=== PATIENT | male | born 1995 | race Caucasian/White ===

== ENCOUNTER 2020-02-17 09:46 | Emergency (ER) | payer SELFPAY ==
--- OUTSIDE RECORDS SUMMARY | 2020-02-17 09:49 | XMS REPORT | Continuity of Care Document ---
:1995 Author Organization [facility] t Address [address] Hernandez [address] [place] [id number] Care Team Providers Name Role Phone Unavailable Unavailable Unavailable Problems This patient has no known problems. Allergies, Adverse Reactions, Alerts This patient has no known allergies or adverse reactions. Medications This patient has no known medications. Procedures This patient has no known procedures. Results This patient has no known results.
[2020-02-17 10:15] LABS: Absolute Lymphocytes (CBC) 1.3 K/uL (0.7-4.9); Basophils % 0.2 % (0-1.3); Hematocrit 48.1 % (39.6-49.0); MPV 9.4 fL (7.6-11.3); RBC Red Blood Cell Count 5.09 M/uL (4.33-5.43)
[2020-02-17] MEDS ORDERED: NA CHLORIDE 0.9% 1,000 ML ONE (10:15)
[2020-02-17 10:20] LABS: Protime INR 0.92
[2020-02-17 10:35] LABS: ALT/SGPT 47 U/L (12-78); AST/SGOT 28 U/L (15-37); Albumin 4.4 g/dL (3.4-5.0); Alkaline Phosphatase 74 U/L (45-117); BUN Blood Urea Nitrogen 11 mg/dL (7-18); Bicarbonate 23 mmol/L (21-32); Bilirubin Direct 0.3 mg/dL (0-0.2); Bilirubin Total 1.4 mg/dL (0.2-1.0); Glucose Level 69 mg/dL (74-106); Potassium 3.9 mmol/L (3.5-5.1); Sodium Level 136 mmol/L (136-145)
[2020-02-17] MEDS ORDERED: LIDOCAINE 1% W/EPI 1:100,000 MDV 20 ML VIAL ONE (11:30)
[2020-02-17 11:36] LABS: Blood Morphology Comment NOT SEEN (NOT SEEN); Platelet Estimate ADEQ; Urine White Blood Cell Casts OK
--- NOTE | 2020-02-17 11:56 | EDPHYS ---
Physician Documentation [facility] Name: Anthony Deng Age: 24 yrs Sex: Male : 1995 Arrival Date: 02/17/2020 Time: 09:48 Bed 17 Private MD: ED Physician Jeff Yates HPI: 02/16 11:50 This 24 yrs old Male presents to ER via EMS with complaints of Suicidal simran Ideation. 11:50 The patient presents to the emergency department with anxiety, depression, a history of simran a suicide gesture, where the patient cut wrists, suicide ideation. Onset: The symptoms/episode began/occurred this morning, today. Past psychiatric history: Prior diagnosis: depression. Associated signs and symptoms: The patient has no apparent associated signs or symptoms. Severity of symptoms: At their worst the symptoms were moderate in the emergency department the symptoms have improved mildly. The patient has experienced similar episodes in the past, several times. Historical: - Allergies: 09:52 No Known Allergies; ss - Home Meds: :52 None [Active]; ss - PMHx: :52 None; ss - PSHx: 09:52 None; ss - Immunization history:: Adult Immunizations up to date. - Social history:: Smoking status: Patient reports the use of cigarette tobacco products, smokes one-half pack cigarettes per day. ROS: 11:51 Constitutional: Negative for fever, chills, and weight loss, Eyes: Negative for injury, simran pain, redness, and discharge, ENT: Negative for injury, pain, and discharge, Neck: Negative for injury, pain, and swelling, Cardiovascular: Negative for chest pain, palpitations, and edema, Respiratory: Negative for shortness of breath, cough, wheezing, and pleuritic chest pain, Abdomen/GI: Negative for abdominal pain, nausea, vomiting, diarrhea, and constipation, Back: Negative for injury and pain, : Negative for injury, bleeding, discharge, and swelling, Skin: Negative for injury, rash, and discoloration, Neuro: Negative for headache, weakness, numbness, tingling, and seizure, Allergy/Immunology: Negative for hives, rash, and allergies, Endocrine: Negative for neck swelling, polydipsia, polyuria, polyphagia, and marked weight changes, Hematologic/Lymphatic: Negative for swollen nodes, abnormal bleeding, and unusual bruising. 11:51 MS/extremity: Positive for laceration, swelling, tenderness, of the right arm and left arm. 11:51 Psych: Positive for depression, suicide gesture, suicidal ideation. Exam: 11:51 Constitutional: This is a well developed, well nourished patient who is awake, alert, simran and in no acute distress. Head/Face: Normocephalic, atraumatic. Eyes: Pupils equal round and reactive to light, extra-ocular motions intact. Lids and lashes normal. Conjunctiva and sclera are non-icteric and not injected. Cornea within normal limits. Periorbital areas with no swelling, redness, or edema. ENT: Nares patent. No nasal discharge, no septal abnormalities noted. Tympanic membranes are normal and external auditory canals are clear. Oropharynx with no redness, swelling, or masses, exudates, or evidence of obstruction, uvula midline. Mucous membranes moist. Neck: Trachea midline, no thyromegaly or masses palpated, and no cervical lymphadenopathy. Supple, full range of motion without nuchal rigidity, or vertebral point tenderness. No Meningismus. Chest/axilla: Normal chest wall appearance and motion. Nontender with no deformity. No lesions are appreciated. Cardiovascular: Regular rate and rhythm with a normal S1 and S2. No gallops, murmurs, or rubs. Normal PMI, no JVD. No pulse deficits. Respiratory: Lungs have equal breath sounds bilaterally, clear to auscultation and percussion. No rales, rhonchi or wheezes noted. No increased work of breathing, no retractions or nasal flaring. Abdomen/GI: Soft, non-tender, with normal bowel sounds. No distension or tympany. No guarding or rebound. No evidence of tenderness throughout. Back: No spinal tenderness. No costovertebral tenderness. Full range of motion. Male : Normal genitalia with no discharge or lesions. Skin: Warm, dry with normal turgor. Normal color with no rashes, no lesions, and no evidence of cellulitis. Neuro: Awake and alert, GCS 15, oriented to person, place, time, and situation. Cranial nerves II-XII grossly intact. Motor strength 5/5 in all extremities. Sensory grossly intact. Cerebellar exam normal. Normal gait. 11:51 Musculoskeletal/extremity: Extremities: noted in the right wrist and left arm: laceration, pain, ROM: intact in all extremities, Circulation is intact in all extremities. Sensation intact. Compartment Syndrome exam of affected extremity: is normal. DVT Exam: No signs of deep vein thrombosis. negative Homans' sign noted on exam, no appreciated bluish discoloration, no erythema, no increased warmth, pain, swelling, tenderness. 12:00 ECG was reviewed by the Attending Physician. [facility] Vital Signs: 09:50 BP 122 / 61; Pulse 61; Resp 14; Temp 98.2(O); Pulse Ox 100% on R/A; Weight 79.38 kg; ss Height 5 ft. 7 in. (170.18 cm); 14:30 BP 114 / 70; Pulse 61; Resp 19; Pulse Ox 99% on R/A; Pain 0/10; ls4 18:30 BP 122 / 64; Pulse 62; Resp 18; Pulse Ox 99% on R/A; Pain 0/10; ls4 22:30 BP 118 / 62; Pulse 60; Resp 16; Temp 98.4(O); Pulse Ox 99% on R/A; Pain 0/10; ls4 09:50 Body Mass Index 27.41 (79.38 kg, 170.18 cm) Laceration: 11:58 Wound Repair of 5cm ( 2.0in ) subcutaneous laceration to left wrist and right wrist. simran Irregularly shaped.. Distal neuro/vascular/tendon intact. Anesthesia: Local anesthetic administered with 10 mls of 1% lidocaine w/ Epi. Wound prep: Simple cleansing by me. Skin closed with 6 5-0 Prolene using vertical mattress sutures and sterile technique. Dressed with Neosporin, non-adherent dressing. Patient tolerated well. MDM: 09:49 Patient medically screened. simran 11:54 Data reviewed: vital signs, nurses notes, lab test result(s), EKG. simran 11:57 Differential diagnosis: drug withdrawal. acute psychotic break, depression, psychosis simran secondary to non-compliance. Data interpreted: engine monitor: rate is 61 beats/min, Pulse oximetry: on room air is 100 %. Test interpretation: by ED physician or midlevel provider: ECG. Counseling: I had a detailed discussion with the patient and/or guardian regarding: the historical points, exam findings, and any diagnostic results supporting the discharge/admit diagnosis, lab results, the need to transfer to another facility, for higher level of care, [facility] does not immediately have the required specialist. 19:57 Physician consultation: Dr. Soriano was called at 19:58, was contacted at 19:58, snw regarding regarding transfer, [facility] Psych. Dr. Soriano kindly accepts pt in transfer. 02/16 09:50 Order name: Acetaminophen; Complete Time: 11:49 [facility] 02/16 09:50 Order name: Basic Metabolic Panel; Complete Time: 11:49 [facility] 02/16 09:50 Order name: CBC with Diff; Complete Time: 11:49 [facility] 02/16 09:50 Order name: ETOH Level; Complete Time: 11:49 [facility] 02/16 09:50 Order name: Hepatic Function; Complete Time: 11:50 [facility] 02/16 09:50 Order name: PT-INR; Complete Time: 11:50 [facility] 02/16 09:50 Order name: Ptt, Activated; Complete Time: 11:50 [facility] 02/16 09:50 Order name: Salicylate; Complete Time: 11:50 [facility] 02/16 09:50 Order name: Urine Drug Screen; Complete Time: 19:54 [facility] 02/16 09:50 Order name: EKG; Complete Time: 09:52 [facility] 02/16 11:37 Order name: CBC Smear Scan; Complete Time: 11:50 [facility] 02/16 18:56 Order name: Urine Dipstick--Ancillary (enter results); Complete Time: 19:54 em1 02/16 09:50 Order name: EKG - Nurse/Tech; Complete Time: 10:02 [facility] 02/16 09:50 Order name: IV Saline Lock; Complete Time: 10:02 [facility] 02/16 09:50 Order name: Labs collected and sent; Complete Time: 10:02 [facility] 02/16 09:50 Order name: Urine Dipstick-Ancillary (obtain specimen); Complete Time: 18:54 [facility] 02/16 10:47 Order name: Diet Finger Food; Complete Time: 10:48 3 02/16 11:50 Order name: Diet Regular; Complete Time: 11:51 [facility] 02/16 11:50 Order name: Suture Tray at Bedside; Complete Time: 11:51 [facility] EC:00 Rate is 84 beats/min. Rhythm is regular. QRS [place] is Normal. ND interval is normal. QRS simran interval is normal. QT interval is normal. No Q waves. T waves are Normal. No ST changes noted. Clinical impression: Normal ECG and No evidence of ischemia. Interpreted by me. Reviewed by me. Administered Medications: 10:05 Drug: NS 0.9% 1000 ml Route: IV; Rate: 1 bolus; Site: right antecubital; bp 12:02 Follow up: IV Status: Completed infusion; IV Intake: 1000ml bp 12:01 Drug: Tetanus-Diphtheria Toxoid Adult 0.5 ml {Division Order Technician: [employer] Exp: bp 10/16/2021. Lot #: [id number]. } Route: IM; Site: left deltoid; Disposition: 02/17 13:27 Co-signature as Attending Physician, Jeff Yates MD I agree with the assessment and simran plan of care. Disposition: 02/17/20 11:56 Transfer ordered to Psych Facility. Diagnosis are Suicidal ideations, Suicide attempt, Laceration without foreign body of left forearm, Laceration without foreign body of right forearm, Major depressive disorder, recurrent, Alcohol abuse with intoxication - resolved. - Reason for transfer: Higher level of care. - Accepting physician is to psych. - Condition is Fair. - Problem is new. - Symptoms have improved. Signatures: Dispatcher [employer] Jeff Haro MD MD cha Therrien, Shelly, SAND SHOVELER-C SAND SHOVELER-Csnw Erin Cannon RN RN ss Bryson, James, RN RN jb4 Flaco West RN RN bp Corrections: (The following items were deleted from the chart) 02/16 12:32 11:56 02/17/2020 11:56 Transfer ordered to Psych Facility. Diagnosis is Suicidal simran ideations; Suicide attempt; Laceration without foreign body of left forearm; Laceration without foreign body of right forearm; Major depressive disorder, recurrent. Reason for transfer: Higher level of care. Accepting physician is to psych. Condition is Fair. Problem is new. Symptoms have improved. simran 02/17 00:42 02/16 12:32 02/17/2020 11:56 Transfer ordered to Psych Facility. Diagnosis is Suicidal jb4 ideations; Suicide attempt; Laceration without foreign body of left forearm; Laceration without foreign body of right forearm; Major depressive disorder, recurrent; Alcohol abuse with intoxication - resolved. Reason for transfer: Higher level of care. Accepting physician is to psych. Condition is Fair. Problem is new. Symptoms have improved. simran
--- NOTE | 2020-02-17 11:56 | ER ---
Nurse's Notes [facility] Name: Anthony Deng Age: 24 yrs Sex: Male : 1995 Arrival Date: 02/17/2020 Time: 09:48 Bed 17 Private MD: Diagnosis: Suicidal ideations;Suicide attempt;Laceration without foreign body of left forearm;Laceration without foreign body of right forearm;Major depressive disorder, recurrent;Alcohol abuse with intoxication-resolved Presentation: 02/16 09:50 Coronavirus screen: Proceed with normal triage. Patient denies a cough. Patient denies ss shortness of breath or difficulty breathing. Patient denies measured and/or subjective temperature greater than 100.4F prior to today's visit. Patient denies travel on a cruise ship or to a country the [facility] currently lists as an affected area. Patient denies contact with known and/or suspected case of COVID-19. Ebola Screen: Patient denies exposure to infectious person. Patient denies travel to an Ebola-affected area in the 21 days before illness onset. Initial Sepsis Screen: Does the patient meet any 2 criteria? No. Patient's initial sepsis screen is negative. Does the patient have a suspected source of infection? No. Patient's initial sepsis screen is negative. Risk Assessment: Do you want to hurt yourself or someone else? Patient reports no desire to harm self or others. Onset of symptoms is unknown. 09:50 Acuity: DAILY 2 09:50 Method Of Arrival: EMS: [facility] 09:50 Chief complaint: EMS states: HE HAD A FEW DRINKS LAST NIGHT AND WHEN HE SOBERED UP THIS bp MORNING HE DECIDED HE DIDN'T WANT TO BE HERE ANYMORE AND CUT BOTH WRISTS. Note NO ACTIVE BLEEDING AT THIS TIME. Triage Assessment: 09:50 General: Appears in no apparent distress. comfortable, Behavior is cooperative, bp appropriate for age, anxious. Pain: Denies pain. EENT: No deficits noted. Neuro: No deficits noted. Cardiovascular: No deficits noted. Respiratory: No deficits noted. GI: No signs and/or symptoms were reported involving the gastrointestinal system. : No signs and/or symptoms were reported regarding the genitourinary system. Derm: No deficits noted. Musculoskeletal: No deficits noted. Injury Description: Laceration sustained to palmar aspect of right wrist and palmar aspect of left wrist. Historical: - Allergies: 09:52 No Known Allergies; ss - Home Meds: 09:52 None [Active]; ss - PMHx: : None; ss - PSHx: :52 None; ss - Immunization history:: Adult Immunizations up to date. - Social history:: Smoking status: Patient reports the use of cigarette tobacco products, smokes one-half pack cigarettes per day. Screenin: Abuse screen: Denies threats or abuse. Denies injuries from another. Nutritional bp screening: No deficits noted. Tuberculosis screening: No symptoms or risk factors identified. Fall Risk None identified. Assessment: : General: SEE TRIAGE NOTE. bp 13:15 Reassessment: MD AT B/S FOR LAC REPAIR AND C/S WITH FAMILY. bp 13:36 Reassessment: Transfer initiated by Dr. Jeff Yates with [facility] [place]. ss 14:00 Reassessment: PT ON FACETIME INTERVIEW WITH [facility]. ls4 15:00 Reassessment: Patient appears in no apparent distress at this time. Patient and/or ls4 family updated on plan of care and expected duration. Pain level reassessed. Patient is alert, oriented x 3, equal unlabored respirations, skin warm/dry/pink. SITTER AT BEDSIDE . 16:00 Reassessment: Patient appears in no apparent distress at this time. Patient and/or ls4 family updated on plan of care and expected duration. Pain level reassessed. Patient is alert, oriented x 3, equal unlabored respirations, skin warm/dry/pink. Patient denies pain at this time. 17:00 Reassessment: Patient appears in no apparent distress at this time. Patient and/or ls4 family updated on plan of care and expected duration. Pain level reassessed. Patient is alert, oriented x 3, equal unlabored respirations, skin warm/dry/pink. Patient denies pain at this time. 19:00 Reassessment: Patient appears in no apparent distress at this time. Patient and/or ls4 family updated on plan of care and expected duration. Pain level reassessed. Patient is alert, oriented x 3, equal unlabored respirations, skin warm/dry/pink. Patient denies pain at this time. 20:00 Reassessment: Patient appears in no apparent distress at this time. Patient and/or ls4 family updated on plan of care and expected duration. Pain level reassessed. Patient is alert, oriented x 3, equal unlabored respirations, skin warm/dry/pink. Patient denies pain at this time. 21:00 Reassessment: Patient appears in no apparent distress at this time. Patient and/or ls4 family updated on plan of care and expected duration. Pain level reassessed. Patient is alert, oriented x 3, equal unlabored respirations, skin warm/dry/pink. 22:34 Reassessment: Patient appears in no apparent distress at this time. Patient and/or ls4 family updated on plan of care and expected duration. Pain level reassessed. Patient is alert, oriented x 3, equal unlabored respirations, skin warm/dry/pink. 22:47 Reassessment: REPORT TO MARVIN Louis RN AT [facility]. PT SIGNED CONSENT TO TRANSFER. ls4 23:30 Reassessment: Patient appears in no apparent distress at this time. Patient and/or jb4 family updated on plan of care and expected duration. Pain level reassessed. Patient is alert, oriented x 3, equal unlabored respirations, skin warm/dry/pink. Took over care of patient. 02/17 00:38 Reassessment: Patient appears in no apparent distress at this time. Patient and/or jb4 family updated on plan of care and expected duration. Pain level reassessed. Patient is alert, oriented x 3, equal unlabored respirations, skin warm/dry/pink. Pt transferred out of ED via EMS. Psych: 02/16 09:58 Subjective: Patient's mood is sad, hopeless, Delusions are denied, Hallucinations are bp denied Having thoughts of suicide. Denies suicidal plan. Objective: Patient is cooperative, Speech is normal, Affect is blunted, Patient has mutilated themselves by BILATERAL WRIST LACERATIONS. Interventions: Removed personal items and placed in bag. Patient placed in hospital gown. Searched person for dangerous items. Belonging list filled out. Suicide Risk Assessment: Sad Person Scale: Sex of patient: Male: Score 1 point. Age of patient: Score 1 point if patient 15-34. Depression: Score 1 point if signs of depression are present. Previous Attempt: Score 0 point if patient has not previously attempted suicide. Substance Abuse: Score 0 point if patient does not abuse alcohol or drugs. Rational Thinking: Score 0 point if patient has rational thinking. Social Support: Score 0 if social support is present/available. Organized Plan: Score 1 point if patient had a plan in place. Relationship: Score 1 point if patient is , , , or for a single male Chronic Sickness: Score 0 point if patient does not have a chronic illness, debilitating, or severe disorder. TOTAL POINTS: If total points are 5-6, proposed clinical action is to strongly consider hospitalization, depending upon confidence in the follow-up arrangement. Implement suicide precautions. Safety Checks: Personal items have been removed. Door is open. No visitors are present at this time. Patient uses of beer, Last use was 1 days ago. Patient does not have a history of DTs. Vital Signs: 09:50 BP 122 / 61; Pulse 61; Resp 14; Temp 98.2(O); Pulse Ox 100% on R/A; Weight 79.38 kg; ss Height 5 ft. 7 in. (170.18 cm); 14:30 BP 114 / 70; Pulse 61; Resp 19; Pulse Ox 99% on R/A; Pain 0/10; ls4 18:30 BP 122 / 64; Pulse 62; Resp 18; Pulse Ox 99% on R/A; Pain 0/10; ls4 22:30 BP 118 / 62; Pulse 60; Resp 16; Temp 98.4(O); Pulse Ox 99% on R/A; Pain 0/10; ls4 09:50 Body Mass Index 27.41 (79.38 kg, 170.18 cm) ED Course: 09:48 Patient arrived in ED. em1 09:49 Jeff Yates MD is Attending Physician. [facility] 09:51 Flaco West, RN is Primary Nurse. bp 09:51 Triage completed. ss 09:52 Arm band placed on right wrist. ss 09:57 Patient has correct armband on for positive identification. Bed in low position. Call bp light in reach. Side rails up X2. 10:02 Initial lab(s) drawn, by me, sent to lab. Inserted saline lock: 20 gauge in right dh3 antecubital area, using aseptic technique. Blood collected. 10:11 EKG done, by ED staff, reviewed by Jeff Yates MD. [facility] 11:44 [facility] Crisis line called to request mental health screen. em1 13:16 Assist provider with laceration repair on palmar aspect of right wrist and palmar bp aspect of left wrist that was between 2.6 to 7.5 cm using sutures. Set up tray. Performed by Jeff Yates MD Dressed with Neosporin, Patient tolerated well. 15:00 Family accompanied patient. ls4 15:05 Primary Nurse role handed off by Flaco West, WAN 18:00 No apparent distress. ls4 18:00 Warm blanket given. Pillow given. Verbal reassurance given. ls4 18:00 Diet: Patient given a regular meal tray. Patient given water. Tolerated well. ls4 19:54 Radha OUTSIDE PL[employer] CABLE ENGINEER spoke with physician at [facility]. ar5 22:30 Latisha Ventura, RN is Primary Nurse. ls4 22:33 No apparent distress. Resting quietly. ls4 02/17 00:38 IV discontinued, intact, bleeding controlled, No redness/swelling at site. Pressure jb4 dressing applied. Administered Medications: 02/16 10:05 Drug: NS 0.9% 1000 ml Route: IV; Rate: 1 bolus; Site: right antecubital; bp 12:02 Follow up: IV Status: Completed infusion; IV Intake: 1000ml bp 12:01 Drug: Tetanus-Diphtheria Toxoid Adult 0.5 ml {Field Artillery Operations Specialist: [employer]. Exp: bp 10/16/2021. Lot #: [id number]. } Route: IM; Site: left deltoid; Intake: 12:02 IV: 1000ml; Total: 1000ml. bp Outcome: 11:56 ER care complete, transfer ordered by . simran 02/17 00:38 Transferred by ground EMS [facility]. to [facility], Transfer form completed. jb4 Condition: stable Discharge instructions given to patient, Instructed on the need for transfer, Demonstrated understanding of instructions. 00:42 Patient left the ED. jb4 Signatures: Jeff Yates MD MD cha Martinez, Eric em1 Erin Cannon RN RN ss Bryson, James, RN RN jb4 [facility] Flaco West, WAN BLAS bp Latisha Ventura, RN RN ls4 Charlotte Centeno ar5 Corrections: (The following items were deleted from the chart) 02/16 22:48 22:47 No apparent distress. Resting quietly. ls4 ls4
[2020-02-17] MEDS ORDERED: TETANUS & DIPHTHERIA TOX,ADULT 0.5 ML VIAL ONE (12:03)
[2020-02-17 18:56] LABS: Barbiturates NEGATIVE (NEGATIVE); Benzodiazepines NEGATIVE (NEGATIVE); Cocaine NEGATIVE (NEGATIVE); METHAMPHETAM NEGATIVE (NEGATIVE); Methadone NEGATIVE (NEGATIVE); Opiates NEGATIVE (NEGATIVE); Phencyclidine NEGATIVE (NEGATIVE); THC Cannibis NEGATIVE (NEGATIVE)
[2020-02-17 18:59] LABS: Urine Blood NEGATIVE (NEG); Urine Glucose NEGATIVE (NEG); Urine Protein NEGATIVE (NEG); Urine Specific Gravity >1.030 (1.005-1.030); Urine pH 5.5 (5.0-7.0)
[2020-02-18 00:58] VITALS: O2SAT 99
[2020-02-18 01:02] VITALS: BP 118/62; TEMP 98.4
--- NOTE | 2020-02-18 07:27 | EKG ---
Test Date: 2020-02-17 Test Time: 10:11:12 Product Safety Head: PAMELA MEASUREMENT RESULTS: Intervals: Rate: 84 ME: 138 QRSD: 94 QT: 400 QTc: 472 [place]: P: 66 ME: 138 QRS: 50 T: 38 INTERPRETIVE STATEMENTS: Normal sinus rhythm Possible Left atrial enlargement Borderline ECG No previous ECG available for comparison Electronically Signed On 02-18-20 07:24:21 CDT by Tyrell Tamez
== END 2020-02-18 00:42 ==
LOC: ER 09:46
PROC: 0JQH0ZZ Repair Left Lower Arm Subcutaneous Tissue and Fascia, Open Approach (ICD-10-PCS; principal; 2020-02-18)
PROC: 0JQG0ZZ Repair Right Lower Arm Subcutaneous Tissue and Fascia, Open Approach (ICD-10-PCS; 2020-02-18)
DX: S51.812A Laceration without foreign body of left forearm, initial encounter (principal); S51.811A Laceration without foreign body of right forearm, initial encounter; F33.9 Major depressive disorder, recurrent, unspecified; X78.9XXA Intentional self-harm by unspecified sharp object, initial encounter; Y93.9 Activity, unspecified; Y92.9 Unspecified place or not applicable; Z23 Encounter for immunization; F17.210 Nicotine dependence, cigarettes, uncomplicated
CPT/HCPCS: 36415; 80048; 80076; 80307; 80320; 80329; 81003; 85025; 85610; 85730; 90471; 90714; 93005; 96360; 96361; 99285; J7030